=== PATIENT | male | born 1995 | race African-American/Black ===

== ENCOUNTER 2021-06-27 08:43 | Emergency (ER) | payer BC ==
[2021-06-27] MEDS ORDERED: ONDANSETRON 4 MG/2 ML VIAL ONE (08:54)
[2021-06-27] MEDS ORDERED: HYDROMORPHONE HCL 1 MG/ML INJ ONE (08:54)
--- NOTE | 2021-06-27 09:41 | RAD REPORT ---
EXAM DESCRIPTION: RAD - Foot Left 2 View - 06/27/2021 9:30 am CLINICAL HISTORY: SMASH INJURY, medial laceration COMPARISON: No comparisons FINDINGS: No fracture, dislocation or periosteal reaction. No acute or destructive bony process. Medial foot laceration changes are evident. No foreign body identified. Punctate hyperdensities on th e skin surface of the first toe probably skin contaminant. Clothing artifact overlies the distal tib- fib on the lateral projection. IMPRESSION: No foreign body identified in the soft tissues. No acute bone finding.
--- NOTE | 2021-06-27 09:42 | RAD REPORT ---
EXAM DESCRIPTION: RAD - Tib Fib Left - 06/27/2021 9:30 am CLINICAL HISTORY: Blunt force trauma, laceration COMPARISON: None. FINDINGS: No fracture is identified. There is no dislocation or periosteal reaction noted. No acute or suspicious bony finding. No foreign body or other soft tissue abnormality. IMPRESSION: Negative left tibia & fibula examination.
[2021-06-27] MEDS ORDERED: LIDOCAINE 1% 20 ML MDV ONE (09:49)
--- NOTE | 2021-06-27 10:10 | ER ---
Nurse's Notes [facility] Name: Michele Olivas Age: 26 yrs Sex: Male : 1995 Arrival Date: 06/27/2021 Time: 08:44 Bed 2 Private MD: Diagnosis: Crush injury to left foot and leg, 10 cm laceration, laceration repair. Presentation: 06/27 08:46 Chief complaint: Patient states: Large pipe rolled onto L foot/ankle at work just prior ss to arrival. Pt c/o significant pain to affected extremity. Laceration noted to bottom of R foot, approximately 5-6 inches. Small amount of bleeding noted. Care prior to arrival: None. Mechanism of Injury: See triage note. Trauma event details: Injury occurred in the [facility], Injury occurred: in an industrial place of business Injury occurred: June 27, 2021. 08:46 Acuity: BEVERLY 2 ss 08:46 Method Of Arrival: Wheelchair ss 09:13 Coronavirus screen: Client denies travel out of the [place] in the last 14 days. At this ag7 time, the client does not indicate any symptoms associated with coronavirus-19. Ebola Screen: No symptoms or risks identified at this time. Initial Sepsis Screen: Does the patient meet any 2 criteria? No. Patient's initial sepsis screen is negative. Does the patient have a suspected source of infection? No. Patient's initial sepsis screen is negative. Risk Assessment: Do you want to hurt yourself or someone else? Patient reports no desire to harm self or others. Onset of symptoms was June 27, 2021. Transition of care: WORK. Trauma Activation: Alert Physician: ED Physician; Name: ; Notified At: ; Arrived At: Physician: General Surgeon; Name: ; Notified At: ; Arrived At: Physician: Radiology; Name: ; Notified At: ; Arrived At: Physician: Respiratory; Name: ; Notified At: ; Arrived At: Physician: Lab; Name: ; Notified At: ; Arrived At: Historical: - Allergies: 09:38 No Known Allergies; ag7 - Home Meds: 09:38 None [Active]; ag7 - PMHx: 09:38 None; ag7 - PSHx: 09:38 None; ag7 - Immunization history:: Adult Immunizations up to date. - Immunization history: Last tetanus immunization: Patient denies tetanus vaccine. - Social history:: Smoking status: Patient reports the use of cigarette tobacco products, smokes one pack cigarettes per day. Screenin:14 Abuse screen: Denies threats or abuse. Nutritional screening: No deficits noted. ag7 Tuberculosis screening: No symptoms or risk factors identified. Fall Risk Gait- Impaired (20 pts.). Primary Survey: 09:16 NO uncontrolled hemorrhage observed. Breathing/Chest: Respiratory pattern: tachypnea, ag7 Respiratory effort: spontaneous, unlabored. Circulation: Cardiac rhythm: sinus rhythm. Disability Alert. Exposure/Environment: All clothing and personal items were removed. Forensic evidence collection is not deemed to be indicated at this time. Items placed in patient belonging bag. There is evidence of uncontrolled external hemorrhage. Provider notified immediately. Methods to control bleeding applied. Obvious injury(ies) are noted at this time: LEFT FOOT MEDIAL LAERATION. Exposure/Environment: A warming method has been applied: PATIENT REFUSED BLANKET. 09:40 Reassessment Breathing/Chest Respiratory pattern Regular Respiratory effort Spontaneous ag7 Unlabored. Assessment: 09:04 General: Appears distressed, uncomfortable, Behavior is cooperative, appropriate for ag7 age, anxious. Pain: Complains of pain in instep of left foot Pain currently is 10 out of 10 on a pain scale. Quality of pain is described as burning, aching, Pain began suddenly, Is continuous, Alleviated by rest, Aggravated by increased activity, Noted to be grimacing. Neuro: Level of Consciousness is awake, alert, Oriented to person, place, time, situation, Appropriate for age. Cardiovascular: Capillary refill < 3 seconds Patient's skin is warm and dry. Respiratory: Airway is patent Respiratory effort is unlabored, Respiratory pattern is symmetrical, tachypnea. GI: No deficits noted. : No deficits noted. EENT: No deficits noted. Derm: Skin LACERATION Skin is dry, Skin is brown, Skin temperature is warm Wound noted instep of left foot. Musculoskeletal: Capillary refill < 3 seconds, Range of motion: limited in left ankle. Injury Description: Crush injury Laceration. 10:00 Reassessment: No changes from previously documented assessment. Patient and/or family ll1 updated on plan of care and expected duration. Pain level reassessed. Patient is alert, oriented x 3, equal unlabored respirations, skin warm/dry/pink. 11:35 Reassessment: Patient d/c to home with prescription, d/c instructions provided and ag7 patient verbalize an understanding of medication, follow up, and home instructions. Patient left lower extremity incision cleaned with NS, pat dry, triple antibiotic ointment applied , non adhesive dressing applied with gauze and dennis wrap. Patient tolerate well. Vital Signs: 08:53 BP 161 / 88; Pulse 63; Resp 18; Temp 97.9; Pulse Ox 98% ; Weight 70.76 kg; Height 5 ft. mb7 9 in. (175.26 cm); 09:41 BP 121 / 90; Pulse 60; Resp 18; Pulse Ox 100% ; Pain 10/10; ag7 10:00 BP 135 / 79; Pulse 65; Resp 18; Pulse Ox 100% on R/A; Pain 8/10; ag7 10:30 BP 133 / 63; Pulse 83; Resp 18 S; Pulse Ox 97% on R/A; Pain 8/10; ag7 11:34 BP 148 / 73; Pulse 93; Resp 16; Temp 98.6; Pulse Ox 100% on R/A; Pain 6/10; ag7 08:53 Body Mass Index 23.04 (70.76 kg, 175.26 cm) mb7 09:41 Patient is refusing pain medication at this time ag7 [place] Coma Score: 09:12 Eye Response: spontaneous(4). Verbal Response: oriented(5). Motor Response: obeys ag7 commands(6). Total: 15. 11:34 Eye Response: spontaneous(4). Verbal Response: oriented(5). Motor Response: obeys ll1 commands(6). Total: 15. Trauma Score (Adult): 09:12 Eye Response: spontaneous(1); Verbal Response: oriented(1); Motor Response: obeys ag7 commands(2); Systolic BP: > 89 mm Hg(4); Respiratory Rate: 10 to 29 per min(4); [place] Score: 15; Trauma Score: 12 ED Course: 08:44 Patient arrived in ED. rg4 08:45 Arm band placed on Patient placed in an exam room, on a stretcher. ag7 08:58 Shahid Covington MD is Attending Physician. sp3 08:59 Satnam, Lakisha, RN is Primary Nurse. ag7 08:59 Triage completed. ss 09:00 Inserted saline lock: 20 gauge in right antecubital area, using aseptic technique. ll1 Blood collected. 09:14 Patient maintains SpO2 saturation greater than 95% on room air. ag7 09:15 Patient has correct armband on for positive identification. Bed in low position. Call ag7 light in reach. 09:30 Foot Left 2 View XRAY In Process Unspecified. EDMS 09:30 Tib Fib Left XRAY In Process Unspecified. EDMS 11:39 Thermoregulation: warm blanket given to patient. ag7 11:40 lidocaine 1% given to MD. IV discontinued, intact, bleeding controlled, No ag7 redness/swelling at site. Pressure dressing applied. Administered Medications: 09:04 Drug: Zofran (Ondansetron) 4 mg Route: IVP; Site: right antecubital; ll1 09:44 Follow up: Response: No adverse reaction pace 09:05 Drug: Dilaudid (HYDROmorphone) 1 mg {Note: rass 0.} Route: IVP; Site: right antecubital;ll1 09:44 Follow up: Response: No adverse reaction pace 09:45 Drug: Lidocaine (1 %) 1 vials {Note: by Geovanna Lara NP during suture repair. .} Volume: ll1 20 ml; Route: Infiltration; 10:34 Drug: Tetanus-Diphtheria Toxoid Adult 0.5 ml {Clinical Trial Educator: howsimple. Exp: ag7 09/10/2022. Lot #: [id number]. } Route: IM; Site: right deltoid; 10:51 Follow up: Response: No adverse reaction ag7 Intake: 11:42 PO: 0ml; Total: 0ml. ag7 Outcome: 10:09 Discharge ordered by . sp3 11:41 Discharged to home with crutches. ag7 11:41 Condition: stable 11:41 Discharge instructions given to patient, Instructed on discharge instructions, follow up and referral plans. no drinking with medication, no driving heavy equipment, medication usage, safety practices, crutch walking, wound care, Demonstrated understanding of instructions, follow-up care, medications, wound care, crutch walking, Prescriptions given X 2. 11:42 Patient's length of stay in the Emergency Department was greater than 2 hours. ag7 11:43 Patient left the ED. ag7 Signatures: Dispatcher [employer] EDMS Kitty Dickinson, RN RN Beti Collins rg4 Rut Woodson RN RN ll1 Shahid Covington MD MD sp3 Abby Jefferson mb7 Shannon Mcneill RN RN pace Lakisha Hay RN RN ag7
--- NOTE | 2021-06-27 10:10 | EDPHYS ---
Physician Documentation [facility] Name: Michele Olivas Age: 26 yrs Sex: Male : 1995 Arrival Date: 06/27/2021 Time: 08:44 Bed 2 Private MD: ED Physician Shahid Covington HPI: 06/27 09:08 This 26 yrs old Male presents to ER via Wheelchair with complaints of Crush Injury To sp3 Foot. 09:08 26-year-old male with no past medical history presents to the ED for a work-related sp3 crush injury to his left foot. Patient states that 2 pipes rolled over onto his foot and lower leg the course of his normal work duties. Patient has pain on the entire foot and distal tibia and fibular region. No other proximal injuries reported patient has no other pain. No head injury or loss of consciousness. No prior injury or deficits on the left foot per patient. Patient currently has a steel toe boot on his left foot which is still in place.. Historical: - Allergies: 09:38 No Known Allergies; ag7 - Home Meds: 09:38 None [Active]; ag7 - PMHx: 09:38 None; ag7 - PSHx: 09:38 None; ag7 - Immunization history:: Adult Immunizations up to date. - Immunization history: Last tetanus immunization: Patient denies tetanus vaccine. - Social history:: Smoking status: Patient reports the use of cigarette tobacco products, smokes one pack cigarettes per day. ROS: 09:09 Constitutional: Negative for fever, chills, and weight loss, Eyes: Negative for injury, sp3 pain, redness, and discharge, ENT: Negative for injury, pain, and discharge, Neck: Negative for injury, pain, and swelling, Cardiovascular: Negative for chest pain, palpitations, and edema, Respiratory: Negative for shortness of breath, cough, wheezing, and pleuritic chest pain, Abdomen/GI: Negative for abdominal pain, nausea, vomiting, diarrhea, and constipation, Back: Negative for injury and pain, Neuro: Negative for headache, weakness, numbness, tingling, and seizure, Psych: Negative for depression, anxiety, suicide ideation, homicidal ideation, and hallucinations. 09:09 All other systems are negative. Exam: 09:10 Constitutional: This is a well developed, well nourished patient who is awake, alert, sp3 and in no acute distress. Chest/axilla: Normal chest wall appearance and motion. Nontender with no deformity. No lesions are appreciated. Cardiovascular: Regular rate and rhythm with a normal S1 and S2. No gallops, murmurs, or rubs. Normal PMI, no JVD. No pulse deficits. Respiratory: Lungs have equal breath sounds bilaterally, clear to auscultation and percussion. No rales, rhonchi or wheezes noted. No increased work of breathing, no retractions or nasal flaring. Abdomen/GI: Soft, non-tender, with normal bowel sounds. No distension or tympany. No guarding or rebound. No evidence of tenderness throughout. Neuro: Awake and alert, GCS 15, oriented to person, place, time, and situation. Cranial nerves II-XII grossly intact. Motor strength 5/5 in all extremities. Sensory grossly intact. Cerebellar exam normal. Normal gait. Psych: Awake, alert, with orientation to person, place and time. Behavior, mood, and affect are within normal limits. 09:10 Musculoskeletal/extremity: Boot was removed after Lasix were cut on the left foot. Patient has an approximately 10 cm laceration along the medial aspect of the base of his foot longitudinally just above the plantar line. No bony prominences can be palpated. Dorsalis pedis pulses normal. Capillary refill distal toes are also normal. Patient has no motor deficits. Soft tissue swelling and pain is noted no crepitus along the tibia or fibula or foot bones are noted.. Vital Signs: 08:53 BP 161 / 88; Pulse 63; Resp 18; Temp 97.9; Pulse Ox 98% ; Weight 70.76 kg; Height 5 ft. mb7 9 in. (175.26 cm); 09:41 BP 121 / 90; Pulse 60; Resp 18; Pulse Ox 100% ; Pain 10/10; ag7 10:00 BP 135 / 79; Pulse 65; Resp 18; Pulse Ox 100% on R/A; Pain 8/10; ag7 10:30 BP 133 / 63; Pulse 83; Resp 18 S; Pulse Ox 97% on R/A; Pain 8/10; ag7 11:34 BP 148 / 73; Pulse 93; Resp 16; Temp 98.6; Pulse Ox 100% on R/A; Pain 6/10; ag7 08:53 Body Mass Index 23.04 (70.76 kg, 175.26 cm) mb7 09:41 Patient is refusing pain medication at this time ag7 [place] Coma Score: 09:12 Eye Response: spontaneous(4). Verbal Response: oriented(5). Motor Response: obeys ag7 commands(6). Total: 15. 11:34 Eye Response: spontaneous(4). Verbal Response: oriented(5). Motor Response: obeys ll1 commands(6). Total: 15. Trauma Score (Adult): 09:12 Eye Response: spontaneous(1); Verbal Response: oriented(1); Motor Response: obeys ag7 commands(2); Systolic BP: > 89 mm Hg(4); Respiratory Rate: 10 to 29 per min(4); [place] Score: 15; Trauma Score: 12 Laceration: 10:43 Wound Repair of 11cm ( 4.3in ) subcutaneous laceration to ball of left foot and arch of kb left foot. Irregularly shaped.. Distal neuro/vascular/tendon intact. Anesthesia: Wound infiltrated with 12 mls of 1% lidocaine. Wound prep: Extensive cleansing with hibiclenz by me, Wound irrigation with saline by me. Skin closed with 18 4-0 Prolene using 11 cruciate knots, 7 simple sutures. Patient tolerated well. MDM: 08:58 Patient medically screened. sp3 09:11 Data reviewed: vital signs, nurses notes. ED course: 26-year-old with crush injury to sp3 the left foot. X-rays demonstrate no bony abnormality on my read but radiology overread is pending. Laceration will be repaired by midlevel provider. Tetanus is up-to-date. Dilaudid and Zofran were given for pain control. Likely discharge home after wound care is complete.. 10:08 ED course: X-rays are negative and wound is being repaired by midlevel provider. sp3 Tetanus was given due to error in reporting earlier.. 03 09:01 Order name: Foot Left 2 View XRAY; Complete Time: 10:08 sp3 03 09:01 Order name: Tib Fib Left XRAY; Complete Time: 10:08 sp3 06/27 09:43 Order name: Dressing - Wound; Complete Time: 10:00 kb 06/27 09:43 Order name: Gloves, Sterile; Complete Time: 10:00 kb 06/27 09:43 Order name: Prolene, Sutures; Complete Time: 10:00 kb 06/27 09:43 Order name: Setup Suture Tray; Complete Time: 10:00 kb 06/27 11:18 Order name: Crutches; Complete Time: 11:43 ll1 Administered Medications: 09:04 Drug: Zofran (Ondansetron) 4 mg Route: IVP; Site: right antecubital; ll1 09:44 Follow up: Response: No adverse reaction pace 09:05 Drug: Dilaudid (HYDROmorphone) 1 mg {Note: rass 0.} Route: IVP; Site: right antecubital;ll1 09:44 Follow up: Response: No adverse reaction pace 09:45 Drug: Lidocaine (1 %) 1 vials {Note: by Geovanna Lara NP during suture repair. .} Volume: ll1 20 ml; Route: Infiltration; 10:34 Drug: Tetanus-Diphtheria Toxoid Adult 0.5 ml {[employer] Supervisor: [employer]. Exp: ag7 09/10/2022. Lot #: [id number]. } Route: IM; Site: right deltoid; 10:51 Follow up: Response: No adverse reaction ag7 Disposition Summary: 06/27/21 10:09 Discharge Ordered Location: Home sp3 Condition: Stable sp3 Diagnosis - Crush injury to left foot and leg, 10 cm laceration, laceration repair. sp3 Followup: sp3 - With: Private Physician - When: Upon discharge from the Emergency Department - Reason: Recheck today's complaints Discharge Instructions: - Discharge Summary Sheet sp3 - Laceration Care, Adult sp3 Forms: - Medication Reconciliation Form sp3 - Work release form ss - Thank You Letter sp3 - Antibiotic Education sp3 - Prescription Opioid Use sp3 Prescriptions: - Cephalexin 500 mg Oral Capsule - take 1 capsule by ORAL route every 8 hours for 10 days; 30 capsule; Refills: 0, sp3 Product Selection Permitted - Tramadol 50 mg Oral Tablet - take 1 tablet by ORAL route every 8 hours as needed; 12 tablet; Refills: 0, sp3 Product Selection Permitted Signatures: Dispatcher [employer] Kendal Bridges FNP-C FNP-Rut Martinez RN RN ll1 Shahid Covington MD MD sp3 Lakisha Hay RN RN ag7 Shannon Mcneill RN pace
[2021-06-27] MEDS ORDERED: TETANUS & DIPHTHERIA TOX,ADULT 0.5 ML VIAL ONE (10:29)
[2021-06-27 11:59] VITALS: BP 148/73; TEMP 98.6; O2SAT 100
== END 2021-06-27 11:43 | disposition home or self-care (01) ==
LOC: ER 08:43
PROC: 0JQR0ZZ Repair Left Foot Subcutaneous Tissue and Fascia, Open Approach (ICD-10-PCS; principal; 2021-06-27)
DX: S97.82XA Crushing injury of left foot, initial encounter (principal); W23.0XXA Caught, crushed, jammed, or pinched between moving objects, initial encounter; Y92.89 Other specified places as the place of occurrence of the external cause; Y99.8 Other external cause status; Z23 Encounter for immunization; F17.210 Nicotine dependence, cigarettes, uncomplicated
CPT/HCPCS: 73620; 73590; 90714; 12004; J1170; J2405; 90471; 96374; 96375; 99284